=== PATIENT | male | born 1970 | race Caucasian/White ===

== ENCOUNTER 2025-08-21 07:53 | Emergency (ER) | payer OTHER, SELFPAY ==
[2025-08-21 08:06] VITALS: BP 122/88
--- NOTE | 2025-08-21 08:58 | ED.GENMED ---
History of Present Illness
General
Chief Complaint: Male Genito-Urinary Symptoms
Time Seen by Provider: 08/21/25 08:42
History of Present Illness
History of Present Illness:
Patient is a 55-year-old male with history of colon cancer in remission though currently on chemotherapy radiation presenting to the emergency department with hematuria. [facility] his oncologist and
colorectal doctor are at [facility]. Patient states that last night he had some dysuria. After he urinated he noticed some blood that was dribbling. Today he has been having ongoing issues with bleeding especially after he is done urinating.
No clots. He believes that he is fully emptying his bladder. No fevers chills. No anticoagulation. No traumatic events. No abdominal pain. He does note that has happened him once before that was self-limiting.
Phy Exam
Physical Exam
Physical Exam:
GENERAL: in no acute distress
HEENT: normocephalic, extraocular movements intact, moist oral mucosa
NECK: normal inspection
RESPIRATORY: no respiratory distress, clear to auscultation bilaterally
CARDIOVASCULAR: regular rate and rhythm
ABDOMEN/: soft, non-distended, non-tender to palpation, no rebound or guarding, chaperoned by RN: Small amount of blood at the urethral meatus
EXTREMITIES: non-tender, no edema/swelling
NEUROLOGIC: awake and alert, moves all extremities
SKIN: warm
Course
Orders/Labs/Results
Orders:
Orders
08/21/25 08:57
CT Abd/pelvis W Iv Cont Urgent
Comment:
Reason For Exam: hematuria, colon cancer s/p radiation
08/21/25 09:29
Complete Blood Count/With Diff Urgent
Comprehensive Metabolic Panel Urgent
Urinalysis Reflex To Culture Urgent
Date Specimen was Collected: 08/21/25
Time Specimen was Collected: 09:08
Urine Microscopic Reflex Cult Urgent
Urine Culture Urgent
BRIGITTE Source: U
Specimen Description:
Date Specimen was Collected: 08/21/25
Time Specimen was Collected: 09:08
Abnormal Lab Results
08/21/25
09:29
RBC 4.08 L 10^6/uL
(4.70-6.10)
MCV 99.8 H fL
(80.0-94.0)
MCH 34.6 H pg
(27.0-31.0)
RDW 15.3 H %
(11.5-14.5)
Plt Count 127 L 10^3/uL
(130-400)
Abs Immat Gran (auto) 0.1 H 10^3/uL
(0-0.05)
Absolute Neuts (auto) 8.5 H 10^3/uL
(1.4-6.5)
Absolute Lymphs (auto) 0.5 L 10^3/uL
(1.2-3.4)
Absolute Monos (auto) 0.7 H 10^3/uL
(0.1-0.6)
Immature Gran % 0.6 H %
(0-0.5)
Neutrophils % 86.9 H %
(42.2-75.2)
Lymphocytes % 4.8 L %
(20.5-51.1)
Glucose 118 H mg/dl
(70-99)
Ur Occult Blood Reflex 4+ A
(Negative)
Leukocyte Esterase Rfl 1+ A
(Negative)
Urine RBC 70-80 A /HPF
(0-2)
Urine Albumin (Reflex) 2+ A
(Neg - Trace)
08/21/25 09:29
08/21/25 09:29
Vital Signs
Initial and Last Documented VS:
Initial Vital Signs
Temp Pulse Resp BP Pulse Ox
98.2 F 91 18 122/88 99
08/21/25 08:06 08/21/25 08:06 08/21/25 08:06 08/21/25 08:06 08/21/25 08:06
Last Documented Vital Signs
Temp Pulse Resp BP Pulse Ox
98.2 F 66 18 150/102 99
08/21/25 08:06 08/21/25 11:08 08/21/25 11:08 08/21/25 11:08 08/21/25 11:08
MDM/Problems Addressed
Differential Diagnosis Includes:
Patient is a 55-year-old man with history of colon cancer currently on chemotherapy and radiation presenting to the emergency department with painless hematuria. On arrival vitals unremarkable exam does show some blood at the urethral meatus.
Differential is broad but consists of UTI versus new malignancy versus radiation side effect. Considered kidney stone or aortic pathology though less likely. Will check blood work urinalysis and CT scan.
*Pulse Oximetry
SaO2: 99
Oxygen Mode of Delivery: Room air
Patient hypoxic: no
*Critical Care Note
Total Time (30-74mins, 75-104mins- exclusive of procedures): Not Applicable
Update Note
Update Note:
Blood work reassuring. Urinalysis with blood and 1+ leuk. CT scan with no acute abnormality. After shared decision making given patient's dysuria will treat with antibiotics. Patient will discuss with oncology. He will also follow with
urologist. Patient advised strict return precautions including urinary retention.
ED Attending Note
-
Portions of this chart may have been created with voice recognition software.� Occasional wrong word or��sound alike� substitutions may have occurred due to the inherent limitations of voice recognition software.
Discharge Plan
Departure
Patient Disposition: Home (Routine Discharge)
Date of Disposition: 08/21/25
Time of Disposition: 12:33
Patient with high blood pressure during this ER visit?: No
Discharge Problem:
UTI (urinary tract infection)
Prescriptions:
New
cephalexin 500 mg capsule
500 mg PO QID 7 Days Qty: 28 0RF
No Action
Thera-Tabs Tablet
1 tab PO DAILY
ferrous sulfate 325 mg (65 mg iron) Tablet
325 mg PO DAILY
Referrals:
Sean Gonsalez MD [Active, Urology]
NONE,* [Family Provider, Internal Medicine]
Activity Restrictions/Additional Instructions:
Thank You for choosing [facility].
It was a pleasure meeting you and taking part in your care.
You were seen in the Emergency Department today for bloody urine. While you were here we performed blood work, which was reassuring. We did start you on antibiotics. We will call you if we need to change your antibiotics.. Please follow-up with
your oncologist as well as a urologist.
If you experience fever, worsening of your symptoms, or develop any other new or concerning symptoms, please return to the Emergency Department immediately.
Please see the attached sheet for additional information.
Interventions
Interventions:
*Risk Screen - Suicide Last Done: 08/21/25 08:06
*General Assessment Last Done: 08/21/25 08:13
*Neglect/Abuse Screening Last Done: 08/21/25 08:12
*ED COVID-19 Vaccine History Last Done: 08/21/25 08:12
*ED Influenza Vaccine History Last Done: 08/21/25 08:12
[facility] Fall Risk Assessment Tool Last Done: 08/21/25 09:38
ED-Male Genitourinary Assessment Last Done: 08/21/25 09:39
Discharge Date and Time
Print Language: [id number]
[2025-08-21 09:40] LABS: Hematocrit 40.7 % (39.0-52.0); Hemoglobin 14.1 g/dL (13.0-18.0); Mean Corp Hgb Conc. 34.6 g/dL (33.0-37.0); Mean Corpuscular Volume 99.8 fL (80.0-94.0); Nucleated Red Blood Cells % 0 % (-); Platelet Count 127 10^3/uL (130-400); Red Cell Dist. Width 15.3 % (11.5-14.5)
[2025-08-21 09:41] LABS: Urine Character Cloudy (Clear)
[2025-08-21 09:59] LABS: ALT (SGPT) 22 U/L (0-50); AST (SGOT) 22 U/L (17-59); Albumin 4.0 g/dl (3.5-5.0); Alkaline Phosphatase 76 U/L (38-126); Blood Urea Nitrogen 19 mg/dl (9-20); Calcium 9.1 mg/dl (8.4-10.2); Carbon Dioxide 27 mmol/L (22-30); Chloride 104 mmol/L (98-107); Glucose 118 mg/dl (70-99); Potassium 3.9 mmol/L (3.5-5.1); Sodium 136 mmol/L (135-145); Total Protein 6.5 g/dl (6.3-8.2); eGFR > 60.00
[2025-08-21 10:17] LABS: Urine White Cell 0-2 /HPF (0-5)
[2025-08-21 10:19] LABS: Urine Red Blood Cell 70-80 /HPF (0-2)
[2025-08-21 11:08] VITALS: BP 150/102
== END 2025-08-21 13:02 | disposition home or self-care (01) ==
LOC: EMR 07:53
PROVIDERS: EMERGENCY PHYSICIAN Student in an Organized Health Care Education/Training Program
DX: N39.0 Urinary tract infection, site not specified (principal); C18.9 Malignant neoplasm of colon, unspecified; Z92.3 Personal history of irradiation
CPT/HCPCS: 99284; 74177; 80053; 81003; 81015; 85025; 87086; Q9967